=== PATIENT | male | born 1970 | race Caucasian/White ===

== ENCOUNTER 2018-07-27 10:59 | Emergency (ER) | payer BC ==
[2018-07-27 11:15] VITALS: BP 125/84; PULSE 91; RESP 18; TEMP 98.8
[2018-07-27] MEDS ORDERED: DIPH,PERTUS(ACELL)TETVAC-LF 0.5 ML VIAL IM ONE (12:16)
[2018-07-27] MEDS ORDERED: SULFAMETHOX-TMP 800-160MG 1 EACH TAB PO STA (12:16)
[2018-07-27] MEDS ORDERED: CEPHALEXIN 500 MG CAP PO STA (12:16)
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
--- NOTE | 2018-07-27 12:39 | XR ---
EXAMINATION TYPE: XR knee complete LT DATE OF EXAM: 07/27/2018 COMPARISON: None HISTORY: Pain and laceration TECHNIQUE: Three-view left knee FINDINGS: No joint effusion is evident. Mild joint space narrowing of the medial compartment is prese nt. No acute fractures or dislocations are evident. IMPRESSION: 1. No acute osseous abnormality
== END 2018-07-27 13:08 | disposition home or self-care (01) ==
LOC: EC 10:59
DX: S81.041A Puncture wound with foreign body, right knee, initial encounter (principal); L03.115 Cellulitis of right lower limb; Z23 Encounter for immunization; V18.9XXA Unspecified pedal cyclist injured in noncollision transport accident in traffic accident, initial encounter
CPT/HCPCS: 90471; 90715; 99284